=== PATIENT | female | born 1960 | race Caucasian/White ===

== ENCOUNTER 2016-12-01 12:53 | Emergency (ER) | payer SELFPAY ==
[~2016-12-01] VITALS: Ht 162.6 cm; Wt 90.9 kg
[~2016-12-01 12:53] MED LIST: GLUCOSAMINE CH1 EAC7 PO; ZITHROMAX Z-PA250 MG PO; effexor
[2016-12-01] MEDS ORDERED: NAPROSYN500 MG PO (14:09)
[2016-12-01] MEDS ORDERED: NORCO 5/3251 TABLET PO (14:09)
[2016-12-01 14:18] VITALS: BP 159/93
== END 2016-12-01 14:19 | disposition home or self-care (01) ==
LOC: EME 12:53
DX: S83.411A Sprain of medial collateral ligament of right knee, initial encounter (principal); X58.XXXA Exposure to other specified factors, initial encounter; F17.210 Nicotine dependence, cigarettes, uncomplicated
CPT/HCPCS: 99281; 99283